=== PATIENT | female | born 1955 | race African-American/Black ===

== ENCOUNTER 2018-12-09 09:08 | Emergency (ER) | payer MEDICAID ==
[~2018-12-09] VITALS: Ht 165.1 cm; Wt 73.0 kg
[2018-12-09] MEDS ORDERED: IPRATROPIUM BROMIDE (0.02%) 0.5MG/2.5ML NEB HHN STA (09:41)
[2018-12-09] MEDS ORDERED: ALBUTEROL (0.083%) 2.5MG/3ML NEB HHN STA (09:41)
[2018-12-09] MEDS ORDERED: METHYLPREDNISOLONE SOD SUCC 125 MG/2 ML VIAL IV ONE ×2 (09:45)
[2018-12-09] MEDS ORDERED: EPINEPHRINE 1:1000 1 MG/ML AMP IM ONE ×2 (09:45)
[2018-12-09] MEDS ORDERED: FAMOTIDINE 20MG/2ML VIAL IV ONE (09:45)
[2018-12-09] MEDS ORDERED: DIPHENHYDRAMINE 50MG/ML VIAL IV ONE ×2 (09:45)
[2018-12-09 14:05] VITALS: BP 148/83
== END 2018-12-09 14:15 | disposition home or self-care (01) ==
LOC: ER 09:08
DX: L50.9 Urticaria, unspecified (principal); Z88.0 Allergy status to penicillin; I10 Essential (primary) hypertension; F17.200 Nicotine dependence, unspecified, uncomplicated
CPT/HCPCS: 94640; 96372; 96374; 96375; 99283; J1200; J2930; J3490; J7611